=== PATIENT | male | born 1970 | race African-American/Black ===

== ENCOUNTER 2021-07-28 15:00 | Emergency (ER) | payer OTHER ==
[2021-07-28] MEDS ORDERED: IBUPROFEN 400 MG TAB PO ONE (16:50)
[2021-07-28] MEDS ORDERED: ACETAMINOPHEN 325 MG TAB PO ONE (16:50)
--- NOTE | 2021-07-28 16:54 | Emergency Department Report ---
ED General Adult HPI - General Chief complaint: Skin/Abscess/Foreign Body Stated complaint: BUMP ON RECTUM Time Seen by Provider: 07/28/21 16:19 Source: patient Mode of arrival: Ambulatory Limitations: No Limitations - History of Present Illness Initial comments: The patient was evaluated in the emergency department for symptoms described in the history of present illness. He/she was evaluated in the context of the global COVID-19 pandemic, which necessitated consideration that the patient might be at risk for infection with the virus that causes COVID-19. Institutional protocols and algorithms that pertain to the evaluation of patients at risk for COVID-19 are in a state of rapid change based on information released by regulatory bodies including the CDC and federal and state organizations. These policies and algorithms were followed during the patient's care in the emergency department. Please note that these policies, procedures and recommendations changed on a rapid basis. The patient is a pleasant 50-year-old gentleman, who presents to the ER today with a complaint of painful lesion near his rectum. He denies additional injuri es and complaints. -: Gradual, days(s) Severity scale (0 -10): 3 Consistency: constant Improves with: rest Worsens with: movement - Related Data Previous Rx's Medication Instructions Recorded Last Taken Type Hydrocortisone [Anusol-Hc 2.5% TOP 30 gm RC PRN PRN #1 cream 07/28/21 Unknown Rx CREAM] Allergies Allergy/AdvReac Type Severity Reaction Status Date / Time No Known Allergies Allergy Unverified 07/28/21 15:41 ED Review of Systems ROS: Stated complaint: BUMP ON RECTUM Other details as noted in HPI Comment: All other systems reviewed and negative Gastrointestinal: as per HPI, other (External hemorrhoids). denies: abdominal pain, nausea, vomiting, hematemesis, melena, hematochezia ED Past Medical Hx - Medications Home Medications: Home Medications Medication Instructions Recorded Confirmed Last Taken Type Hydrocortisone [Anusol-Hc 2.5% TOP 30 gm RC PRN PRN #1 cream 07/28/21 Unknown Rx CREAM] ED Physical Exam - General Limitations: No Limitations General appearance: alert, in no apparent distress - Head Head exam: Present: atraumatic, normocephalic - Eye Eye exam: Present: normal appearance, EOMI. Absent: nystagmus - ENT ENT exam: Present: normal exam, normal orophraynx, mucous membranes moist, normal external ear exam - Neck Neck exam: Present: normal inspection, full ROM. Absent: tenderness, meningismus - Respiratory Respiratory exam: Present: normal lung sounds bilaterally. Absent: respiratory distress, wheezes, rales, rhonchi, stridor, decreased breath sounds - Cardiovascular Cardiovascular Exam: Present: regular rate, normal rhythm, normal heart sounds. Absent: bradycardia, tachycardia, irregular rhythm, systolic murmur, diastolic murmur, rubs, gallop - GI/Abdominal GI/Abdominal exam: Present: soft. Absent: distended, tenderness, guarding, rebound, rigid, pulsatile mass - Rectal Rectal exam: Present: normal inspection, hemorrhoids, tenderness (Minimal tenderness. No redness, pus or streaking.), other (Chaperoned by tail trimmer Shekhar figures). Absent: mass - Extremities Exam Extremities exam: Present: normal inspection, full ROM, other (2+ pulses noted in the bilateral upper and lower extremities. There is no palpable cord. negative Homans sign. Muscular compartments are soft. The pelvis is stable.). Absent: calf tenderness - Back Exam Back exam: Present: normal inspection, full ROM. Absent: tenderness, CVA tenderness (R), CVA tenderness (L), paraspinal tenderness, vertebral tenderness - Neurological Exam Neurological exam: Present: alert, normal gait, other (No facial droop. Tongue midline. Extraocular movements intact bilaterally. Facial sensation intact to light touch in V1, V2, V3 distribution bilaterally. 5 and a 5 strength in 4 extremities. Sensation intact to light touch in 4 extremities.). Absent: motor sensory deficit - Psychiatric Psychiatric exam: Present: normal affect, normal mood - Skin Skin exam: Present: warm, dry, intact, normal color. Absent: rash ED Course Vital Signs 07/28/21 07/28/21 15:43 17:18 Temperature 98.9 F 97.6 F Pulse Rate 86 100 H Respiratory 20 20 Rate Blood Pressure 130/90 121/84 [Right] O2 Sat by Pulse 100 100 Oximetry ED Medical Decision Making - Lab Data Vital Signs 07/28/21 15:43 Temperature 98.9 F Pulse Rate 86 Respiratory 20 Rate Blood Pressure 130/90 [Right] O2 Sat by Pulse 100 Oximetry - Medical Decision Making Differential diagnosis, including not limited to: External hemorrhoids, encounter for medical screening examination Assessment and plan: 50-year-old gentleman presenting with uncomplicated external hemorrhoids, which are not superinfected. Diet and lifestyle modification, Tylenol and Motrin for pain, Anusol, outpatient follow-up with GI, and/or general surgery. Critical care attestation.: If time is entered above; I have spent that time in minutes in the direct care of this critically ill patient, excluding procedure time. ED Disposition Clinical Impression: External hemorrhoids Disposition: HOME / SELF CARE / HOMELESS Is pt being admited?: No Does the pt Need Aspirin: No Condition: Good Instructions: How to Take a Sitz Bath, Hemorrhoids, [id number] Additional Instructions: Patient is found to have external hemorrhoids. Patient may take acetaminophen [id number], 650 mg by mouth, every 4-6 hours as needed for physical pain, maximum daily dose to not exceed 3 g per 24 hours. Patient may also alternate ibuprofen [id number], 400 mg by mouth, with food, every 6 hours as needed for pain. Patient should drink copious water, and consume plenty of fiber, vegetables, and lean protein. Patient may also put together a sitz bath as often as he likes for supportive/symptomatic control; please reference the attached instructions on how to put together a sitz bath. The patient may follow-up with a gastroe nterologist, or general surgeon, both of which have been listed as potential follow-ups on this discharge paperwork, within the next 3 to 4 weeks. It would likely take a few weeks for hemorrhoids to improve. Patient may use the Anusol medication as needed and directed. Please return to the emergency room right away with new pain, worsened pain, migration of pain, projectile vomiting, change in mental status, confusion, inability tolerate liquid feeds, new, worsened or different symptoms not present on the initial emergency room evaluation Prescriptions: Hydrocortisone [Anusol-Hc 2.5% TOP CREAM] 30 gm RC PRN PRN #1 cream PRN Reason: Hemorrhoids Referrals: CLEO POWELL DO [Staff Physician] - 3-5 Days LIN EVANS MD [Staff Physician] - 3-5 Days
[2021-07-28 17:24] VITALS: BP 121/84
== END 2021-07-28 17:28 | disposition home or self-care (01) ==
LOC: ED 15:00
DX: K64.4 Residual hemorrhoidal skin tags (principal); Z79.899 Other long term (current) drug therapy
CPT/HCPCS: 99282